=== PATIENT | female | born 1935 | race Caucasian/White ===

== ENCOUNTER 2016-07-17 01:05 | Inpatient (IN) | payer MEDICARE ==
[~2016-07-17] VITALS: Ht 165.1 cm; Wt 99.8 kg
[2016-07-17] MEDS ORDERED: HYDROCODONE/APAP 5-325MG TABLET PO ONE (01:45)
[2016-07-17] MEDS ORDERED: ALPR0.5T8 PO (01:46)
[2016-07-17] MEDS ORDERED: CALCIUM PO (01:50)
[2016-07-17] MEDS ORDERED: FLUO40CA8 PO (01:50)
[2016-07-17] MEDS ORDERED: [UNRECOGNIZED DRUG - OTHER] PO (01:50)
[2016-07-17] MEDS ORDERED: ASPI81TA31 PO (01:51)
[2016-07-17] MEDS ORDERED: ATOR40TA PO (01:52)
[2016-07-17] MEDS ORDERED: DOCU-25 PO (01:55)
[2016-07-17] MEDS ORDERED: CLOT12CR TP (01:55)
[2016-07-17] MEDS ORDERED: HYDR50TA68 PO (01:57)
[2016-07-17] MEDS ORDERED: LEVO50TA PO (01:58)
[2016-07-17] MEDS ORDERED: HYDR12.5 PO (01:58)
[2016-07-17] MEDS ORDERED: LISI40TA4 PO (01:59)
[2016-07-17] MEDS ORDERED: MECL-102 PO (02:01)
[2016-07-17] MEDS ORDERED: MULT-70 PO (02:02)
[2016-07-17] MEDS ORDERED: HYDROCODONE/APAP 5-325MG TABLET ONE (02:02)
[2016-07-17] MEDS ORDERED: ONDA4TAB11 PO (02:05)
[2016-07-17] MEDS ORDERED: OXYB5TAB11 PO (02:06)
[2016-07-17] MEDS ORDERED: RIVA10TA PO (02:07)
[2016-07-17] MEDS ORDERED: TRAM50TA2 PO (02:09)
[2016-07-17 04:00] VITALS: BP 152/75
[2016-07-17] MEDS ORDERED: TEMAZEPAM 7.5 MG CAPSULE PO PRN (04:00)
[2016-07-17] MEDS ORDERED: ACETAMINOPHEN 325 MG TABLET PO PRN (04:00)
[2016-07-17] MEDS ORDERED: MAGNESIUM HYDROXIDE 30 ML LIQUID UDC PO PRN (04:00)
[2016-07-17] MEDS ORDERED: MAG HYDROX/AL HYDROX/SIMETH 30 ML LIQUID UDC PO PRN (04:00)
[2016-07-17] MEDS ORDERED: CLONAZEPAM 0.5 MG TABLET PO PRN (04:15)
[2016-07-17] MEDS: CLONAZEPAM 0.5 MG TABLET PO PRN ×3 (04:21→20:05)
[2016-07-17 07:30] VITALS: BP 187/104
[2016-07-17] MEDS ORDERED: Medication Not On Formulary EA (Lisinopril 40 MG) PO SCH (11:15)
[2016-07-17] MEDS: DOCUSATE SODIUM 100 MG CAPSULE PO SCH ×2 (11:52→17:43)
[2016-07-17] MEDS: OXYBUTYNIN CHLORIDE 5 MG TABLET PO SCH ×2 (11:53→17:43)
[2016-07-17] MEDS: HYDROCHLOROTHIAZIDE 12.5 MG CAPSULE PO SCH (11:53)
[2016-07-17] MEDS: hydrALAZINE HCL 50 MG TABLET PO SCH ×2 (11:53→20:05)
[2016-07-17 12:00] VITALS: BP 106/76
[2016-07-17] MEDS: LISINOPRIL 20 MG TABLET PO SCH (12:00)
[2016-07-17 16:00] VITALS: BP 131/68
[2016-07-17] MEDS: ESCITALOPRAM OXALATE 10 MG TABLET PO SCH (16:21)
[2016-07-17] MEDS ORDERED: CLOTRIMAZOLE 1% CREAM 30 GM TUBE TP SCH (17:00)
[2016-07-17 20:03] VITALS: BP 91/65
[2016-07-17] MEDS: ATORVASTATIN 40 MG TABLET PO SCH (20:05)
[2016-07-17] MEDS: TRAMADOL HCL 50 MG TABLET PO PRN (20:14)
[2016-07-18] MEDS: LEVOTHYROXINE SODIUM 50 MCG TABLET PO SCH (06:32)
[2016-07-18 07:30] VITALS: BP 156/89
[2016-07-18 07:55] LABS: BASOPHILS % (AUTO) 0.2 % (0.0-2.0); EOSINOPHILS # (AUTO) 0.1 K/uL (0.0-0.7); HEMATOCRIT 36.1 % (37.0-47.0); HEMOGLOBIN 12.5 g/dL (12.0-16.0); LYMPHOCYTES # (AUTO) 1.2 K/uL (0.8-4.8); LYMPHOCYTES % (AUTO) 13.4 % (20.5-51.5); MEAN CORPUSCULAR HEMOGLOBIN 31.3 uug (27.0-31.0); MEAN CORPUSCULAR HGB CONC 35 g/dL (32.0-37.0); MEAN CORPUSCULAR VOLUME 90.8 fL (81.0-99.0); MONOCYTES # (AUTO) 0.6 K/uL (0.1-1.30); NEUTROPHILS # (AUTO) 7.3 K/uL (1.8-8.9); NEUTROPHILS % (AUTO) 78.4 % (38.5-71.5); PLATELET COUNT (AUTO) 207 K/uL (150-450); RED BLOOD CELL COUNT(AUTO) 3.98 MIL/uL (4.20-5.40); RED CELL DISTRIBUTION WIDTH 13.6 % (11.5-14.5); WHITE BLOOD COUNT (AUTO) 9.3 K/uL (4.0-11.2)
[2016-07-18] MEDS: HYDROCHLOROTHIAZIDE 12.5 MG CAPSULE PO SCH (08:44)
[2016-07-18] MEDS: DOCUSATE SODIUM 100 MG CAPSULE PO SCH ×2 (08:44→17:58)
[2016-07-18 08:45] LABS: THYROID STIMULATING HORMONE 1.475 mIU/mL (0.358-3.740)
[2016-07-18] MEDS: ASPIRIN 81 MG TAB.CHEW PO SCH (08:45)
[2016-07-18] MEDS: MULTIVITAMINS,THERAPEUTIC TABLET PO SCH (08:45)
[2016-07-18] MEDS: CALCIUM CARB/VITAMIN D 600-400 MG TABLET PO SCH (08:45)
[2016-07-18] MEDS: OXYBUTYNIN CHLORIDE 5 MG TABLET PO SCH ×2 (08:45→17:58)
[2016-07-18] MEDS: ESCITALOPRAM OXALATE 10 MG TABLET PO SCH (08:45)
[2016-07-18] MEDS: LISINOPRIL 20 MG TABLET PO SCH (08:45)
[2016-07-18] MEDS: hydrALAZINE HCL 50 MG TABLET PO SCH ×2 (08:46→20:52)
[2016-07-18] MEDS: CLONAZEPAM 0.5 MG TABLET PO PRN (08:54)
[2016-07-18] MEDS ORDERED: RIVAROXABAN 10 MG TABLET PO SCH (09:00)
[2016-07-18] MEDS ORDERED: [UNRECOGNIZED DRUG - MIXTURE] PO SCH (09:00)
[2016-07-18] MEDS ORDERED: Medication Not On Formulary EA (Multivitamins (Multivitamin) 1 TAB) PO SCH (09:00)
[2016-07-18 09:05] LABS: BILIRUBIN,TOTAL 0.5 mg/dL (0.2-1.0); CALCIUM 8.8 mg/dL (8.5-10.1); CREATININE 0.7 mg/dL (0.6-1.3); PHOSPHOROUS 2.1 mg/dL (2.5-4.9); POTASSIUM 3.5 mmol/L (3.5-5.1); TOTAL PROTEIN, SERUM 6.3 g/dL (6.4-8.2)
[2016-07-18] MEDS: TRAMADOL HCL 50 MG TABLET PO PRN (10:40)
[2016-07-18 16:00] VITALS: BP 120/65
[2016-07-18 20:39] VITALS: BP 124/63
[2016-07-18] MEDS: ATORVASTATIN 40 MG TABLET PO SCH (20:52)
[2016-07-18] MEDS: MUPIROCIN 2% OINT 22 GM TUBE NS SCH (20:57)
[2016-07-19] MEDS: LEVOTHYROXINE SODIUM 50 MCG TABLET PO SCH (06:08)
[2016-07-19 07:30] VITALS: BP 120/62
[2016-07-19 08:00] VITALS: BP 120/62
[2016-07-19] MEDS: OXYBUTYNIN CHLORIDE 5 MG TABLET PO SCH ×2 (08:26→17:42)
[2016-07-19] MEDS: CALCIUM CARB/VITAMIN D 600-400 MG TABLET PO SCH (08:26)
[2016-07-19] MEDS: MULTIVITAMINS,THERAPEUTIC TABLET PO SCH (08:26)
[2016-07-19] MEDS: ASPIRIN 81 MG TAB.CHEW PO SCH (08:26)
[2016-07-19] MEDS: ESCITALOPRAM OXALATE 10 MG TABLET PO SCH (08:26)
[2016-07-19] MEDS: DOCUSATE SODIUM 100 MG CAPSULE PO SCH ×2 (08:26→17:42)
[2016-07-19] MEDS: LISINOPRIL 20 MG TABLET PO SCH (08:27)
[2016-07-19] MEDS: MUPIROCIN 2% OINT 22 GM TUBE NS SCH ×2 (08:32→20:33)
[2016-07-19] MEDS: HYDROCHLOROTHIAZIDE 12.5 MG CAPSULE PO SCH (08:32)
[2016-07-19] MEDS: CLONAZEPAM 0.5 MG TABLET PO PRN (08:40)
[2016-07-19] MEDS: hydrALAZINE HCL 50 MG TABLET PO SCH ×2 (10:01→20:35)
[2016-07-19 15:29] VITALS: BP 168/93
[2016-07-19] MEDS: TRAMADOL HCL 50 MG TABLET PO PRN (17:49)
[2016-07-19 20:26] VITALS: BP 100/56
[2016-07-19] MEDS: ATORVASTATIN 40 MG TABLET PO SCH (20:33)
[2016-07-20] MEDS: LEVOTHYROXINE SODIUM 50 MCG TABLET PO SCH (06:41)
[2016-07-20 07:30] VITALS: BP 151/73
[2016-07-20] MEDS: CALCIUM CARB/VITAMIN D 600-400 MG TABLET PO SCH (08:47)
[2016-07-20] MEDS: MUPIROCIN 2% OINT 22 GM TUBE NS SCH ×2 (08:47→20:21)
[2016-07-20] MEDS: LISINOPRIL 20 MG TABLET PO SCH (08:48)
[2016-07-20] MEDS: HYDROCHLOROTHIAZIDE 12.5 MG CAPSULE PO SCH (08:49)
[2016-07-20] MEDS: OXYBUTYNIN CHLORIDE 5 MG TABLET PO SCH ×2 (08:49→17:58)
[2016-07-20] MEDS: ESCITALOPRAM OXALATE 10 MG TABLET PO SCH (08:49)
[2016-07-20] MEDS: DOCUSATE SODIUM 100 MG CAPSULE PO SCH ×2 (08:49→17:58)
[2016-07-20] MEDS: MULTIVITAMINS,THERAPEUTIC TABLET PO SCH (08:49)
[2016-07-20] MEDS: ASPIRIN 81 MG TAB.CHEW PO SCH (08:49)
[2016-07-20] MEDS: hydrALAZINE HCL 50 MG TABLET PO SCH ×2 (08:49→20:21)
[2016-07-20] MEDS: CLONAZEPAM 0.5 MG TABLET PO PRN ×2 (09:30→18:12)
[2016-07-20 15:08] VITALS: BP 125/55
[2016-07-20] MEDS: ATORVASTATIN 40 MG TABLET PO SCH (20:21)
[2016-07-20 20:29] VITALS: BP 122/61
[2016-07-21] MEDS: LEVOTHYROXINE SODIUM 50 MCG TABLET PO SCH (06:28)
[2016-07-21 07:30] VITALS: BP 137/67
[2016-07-21] MEDS: HYDROCHLOROTHIAZIDE 12.5 MG CAPSULE PO SCH (09:54)
[2016-07-21] MEDS: MULTIVITAMINS,THERAPEUTIC TABLET PO SCH (09:54)
[2016-07-21] MEDS: DOCUSATE SODIUM 100 MG CAPSULE PO SCH (09:55)
[2016-07-21] MEDS: CALCIUM CARB/VITAMIN D 600-400 MG TABLET PO SCH (09:55)
[2016-07-21] MEDS: ESCITALOPRAM OXALATE 10 MG TABLET PO SCH (09:55)
[2016-07-21] MEDS: OXYBUTYNIN CHLORIDE 5 MG TABLET PO SCH (09:55)
[2016-07-21] MEDS: hydrALAZINE HCL 50 MG TABLET PO SCH (09:56)
[2016-07-21] MEDS: CLONAZEPAM 0.5 MG TABLET PO PRN (09:56)
[2016-07-21] MEDS: LISINOPRIL 20 MG TABLET PO SCH (09:57)
[2016-07-21] MEDS: ASPIRIN 81 MG TAB.CHEW PO SCH (09:58)
[2016-07-21] MEDS: MUPIROCIN 2% OINT 22 GM TUBE NS SCH (09:59)
[2016-07-21] MEDS: TRAMADOL HCL 50 MG TABLET PO PRN (10:58)
[2016-07-21 15:00] VITALS: BP 118/57
== END 2016-07-21 15:41 | disposition home or self-care (01) | DRG 885 ==
LOC: ER 01:09 → GPS 02:55
PROVIDERS: ADMIT Psychiatry & Neurology Psychiatry; ATTEND Internal Medicine
DX: F33.2 Major depressive disorder, recurrent severe without psychotic features (principal); C79.51 Secondary malignant neoplasm of bone; E44.0 Moderate protein-calorie malnutrition; D68.59 Other primary thrombophilia; S61.512D Laceration without foreign body of left wrist, subsequent encounter; X78.1XXD Intentional self-harm by knife, subsequent encounter; Y92.009 Unspecified place in unspecified non-institutional (private) residence as the place of occurrence of the external cause; Z91.5 Personal history of self-harm; J32.0 Chronic maxillary sinusitis; Z85.3 Personal history of malignant neoplasm of breast; Z74.09 Other reduced mobility; Z96.653 Presence of artificial knee joint, bilateral; Z96.641 Presence of right artificial hip joint; E66.01 Morbid (severe) obesity due to excess calories; Z68.36 Body mass index [BMI] 36.0-36.9, adult; Z92.3 Personal history of irradiation; S32.2XXD Fracture of coccyx, subsequent encounter for fracture with routine healing; W19.XXXD Unspecified fall, subsequent encounter; E03.9 Hypothyroidism, unspecified; H91.90 Unspecified hearing loss, unspecified ear; F41.0 Panic disorder [episodic paroxysmal anxiety]; Z98.49 Cataract extraction status, unspecified eye; Z91.81 History of falling; K76.89 Other specified diseases of liver; K44.9 Diaphragmatic hernia without obstruction or gangrene; Z79.899 Other long term (current) drug therapy; E78.5 Hyperlipidemia, unspecified; E67.8 Other specified hyperalimentation; I10 Essential (primary) hypertension
CPT/HCPCS: 36415; 70450; 71010; 71250; 83550; 83735; 84100; 84443; 85025; 93005; 97001; A4663